=== PATIENT | female | born 1955 | race American Indian/Alaskan Native ===

== ENCOUNTER 2017-05-13 07:48 | Emergency (ER) | payer OTHER ==
[2017-05-13] MEDS ORDERED: BOOSTRIX IM ONE (11:15)
[2017-05-13] MEDS ORDERED: BACTRIM DS PO ONE (11:15)
[2017-05-13] MEDS ORDERED: ZOFRAN ODT PO ONE (11:15)
[2017-05-13] MEDS ORDERED: PERCOCET 5/325 PO ONE (11:15)
[2017-05-13] MEDS ORDERED: DILAUDID IV ONE ×2 (11:20→17:26)
[2017-05-13] MEDS ORDERED: ZOFRAN IV ONE ×2 (11:20→17:28)
[2017-05-13] MEDS ORDERED: CLEOCIN 600 MG/50 mL 600 MG/50 ML BAG IV ONE (11:20)
[2017-05-13] MEDS ORDERED: TORADOL IV ONE (11:20)
[2017-05-13 11:49] LABS: Basophils % (Auto) 0.6 % (0.0-1.8); Eosinophils % (Auto) 0.5 % (0.0-4.3); Hematocrit 38.3 % (30.3-42.9); Hemoglobin 13.4 gm/dl (10.1-14.3); Mean Corpuscular HGB Conc 35 % (30-34); Mean Corpuscular Hemoglobin 31 pg (28-32); Mean Corpuscular Volume 89 fl (79-97); Platelet Count 230 K/mm3 (140-440); White Blood Count 6.2 K/mm3 (4.5-11.0)
--- NOTE | 2017-05-13 11:58 | Emergency Department Report ---
ED ENT HPI - General Chief complaint: Earache Stated complaint: RIGHT EAR PAIN Time Seen by Provider: 05/13/17 11:09 Source: patient Mode of arrival: Ambulatory Limitations: No Limitations - History of Present Illness Initial comments: 61 year old female the past medical history diabetes and hypertension presents to the hospital complaints of pain and swelling to right ear 3 days. Patient had a previous pit to this area since and has noticed pain and swelling 3 days. No reports of fever. Glucose is controlled with current medication. Patient had excellent lightheadedness earlier that has since resolved. Pain is constant, rated 5/10 intensity, worse with palpation. No drainage reported. - Related Data Previous Rx's Medication Instructions Recorded Last Taken Type HYDROcodone/APAP 5-325 [[place] 1 each PO Q6HR PRN #20 tablet 05/13/17 Unknown Rx 5/325] Sulfamethoxazole/Trimethoprim 1 each PO BID #20 tablet 05/13/17 Unknown Rx [Bactrim DS TAB] Allergies Allergy/AdvReac Type Severity Reaction Status Date / Time No Known Allergies Allergy Unverified 05/13/17 08:21 ED Dental HPI - General Chief complaint: Earache Stated complaint: RIGHT EAR PAIN Time Seen by Provider: 05/13/17 11:09 Source: patient Mode of arrival: Ambulatory Limitations: No Limitations - Related Data Previous Rx's Medication Instructions Recorded Last Taken Type HYDROcodone/APAP 5-325 [[place] 1 each PO Q6HR PRN #20 tablet 05/13/17 Unknown Rx 5/325] Sulfamethoxazole/Trimethoprim 1 each PO BID #20 tablet 05/13/17 Unknown Rx [Bactrim DS TAB] Allergies Allergy/AdvReac Type Severity Reaction Status Date / Time No Known Allergies Allergy Unverified 05/13/17 08:21 ED Review of Systems ROS: Stated complaint: RIGHT EAR PAIN Other details as noted in HPI Comment: All other systems reviewed and negative Other: Constitutional: No fevers chills Eyes: No eye pain visual changes ENT: as per hpi Neck: Denies pain Respiratory: Denies cough wheezing shortness of breath Cardiovascular: Denies chest pain, palpitations, syncope GI: Denies abdominal pain, nausea, vomiting, diarrhea : Denies dysuria Musculoskeletal: Denies back pain, joint swelling Skin: Denies rash, lesions, erythema Neurologic: Denies headache, numbness, weakness Psychiatric: Denies suicidal ideation, hallucinations ED Past Medical Hx - Past Medical History Previous Medical History?: Yes Hx Hypertension: Yes Hx Diabetes: Yes - Surgical History Past Surgical History?: Yes Additional Surgical History: Hysterectomy - Social History Smoking Status: Former Smoker Substance Use Type: None - Medications Home Medications: Home Medications Medication Instructions Recorded Confirmed Last Taken Type HYDROcodone/APAP 5-325 [[place] 1 each PO Q6HR PRN #20 tablet 05/13/17 Unknown Rx 5/325] Sulfamethoxazole/Trimethoprim 1 each PO BID #20 tablet 05/13/17 Unknown Rx [Bactrim DS TAB] ED Physical Exam - General Limitations: No Limitations - Other Other exam information: General: No limitations, patient is alert in no acute distress Head exam: Atraumatic, normocephalic Eyes exam: Normal appearance, pupils equal reactive to light, extraocular movements intact ENT: Moist mucous membrane, normal oropharynx. Patient has a preauricular pit that has been present since . Patient has swelling, redness, and tenderness along the cymba and farhana helix of the right ear. Tenderness along temporal bone. Ear canal unremarkable Neck exam: Normal inspection, full range of motion, no meningismus nontender Respiratory exam: Clear to auscultation bilateral, no wheezes, rales, crackles Cardiovascular: Normal rate and rhythm, normal heart sounds Abdomen: Soft, nondistended, and nontender, with normal bowel sounds, no rebound, or guarding Extremity: Full range of motion normal inspection no deformity Back: Normal Inspection, full range of motion, no tenderness Neurologic: Alert, oriented x3, cranial nerves intact, no motor or sensory deficit Psychiatric: normal affect, normal mood Skin: Warm, dry, intact ED Course Vital Signs 05/13/17 05/13/17 05/13/17 08:24 10:30 12:48 Temperature 98.3 F 98.5 F 98.1 F Pulse Rate 64 72 68 Respiratory 16 16 Rate Blood Pressure 145/81 Blood Pressure 133/75 123/77 [Right] O2 Sat by Pulse 100 100 100 Oximetry 05/13/17 15:55 Temperature 98.3 F Pulse Rate 67 Respiratory 16 Rate Blood Pressure Blood Pressure 126/73 [Right] O2 Sat by Pulse 100 Oximetry - Reevaluation(s) Reevaluation #1: 05/13/17 17:28 Pain improved after Toradol. Patient refused IV Dilaudid. Patient received clindamycin IV for infection. - Consultations Consultation #1: 05/13/[address] Shetty consulted, discussed presentation and CT findings. Recommends 18- gauge needle aspiration. I and D if absolutely necessary. Patient will need surgical removal of the sinus tract/cysts in the future. - I & D Right Ear Type of Procedure: Simple Blade Size: 11 I & D Procedure: betadine prep, sterile drapes applied, sterile dressing applied , gauze wick placed Progress: culture sent ED Medical Decision Making - Lab Data Result diagrams: 05/13/17 11:41 05/13/17 11:41 Lab Results 05/13/17 05/13/17 05/13/17 Range/Units 11:41 11:41 12:21 WBC 6.2 (4.5-11.0) K/mm3 RBC 4.30 (3.65-5.03) M/mm3 Hgb 13.4 (10.1-14.3) gm/dl Hct 38.3 (30.3-42.9) % MCV 89 (79-97) fl MCH 31 (28-32) pg MCHC 35 H (30-34) % RDW 13.0 L (13.2-15.2) % Plt Count 230 (140-440) K/mm3 Lymph % (Auto) 35.8 H (13.4-35.0) % [place] % (Auto) 7.3 (0.0-7.3) % Eos % (Auto) 0.5 (0.0-4.3) % Baso % (Auto) 0.6 (0.0-1.8) % Lymph # 2.2 (1.2-5.4) K/mm3 [place] # 0.5 (0.0-0.8) K/mm3 Eos # 0.0 (0.0-0.4) K/mm3 Baso # 0.0 (0.0-0.1) K/mm3 Seg Neutrophils % 55.8 (40.0-70.0) % Seg Neutrophils # 3.5 (1.8-7.7) K/mm3 Sodium 138 (137-145) mmol/L Potassium 4.1 (3.6-5.0) mmol/L Chloride 98.6 (98-107) mmol/L Carbon Dioxide 27 (22-30) mmol/L Anion Gap 17 mmol/L BUN 11 (7-17) mg/dL Creatinine 0.6 L (0.7-1.2) mg/dL Estimated GFR > 60 ml/min BUN/Creatinine Ratio 18 % Glucose 230 H (65-100) mg/dL POC Glucose 232 H (70-105) Calcium 9.2 (8.4-10.2) mg/dL 05/13/ Range/Units 16:04 WBC (4.5-11.0) K/mm3 RBC (3.65-5.03) M/mm3 Hgb (10.1-14.3) gm/dl Hct (30.3-42.9) % MCV (79-97) fl MCH (28-32) pg MCHC (30-34) % RDW (13.2-15.2) % Plt Count (140-440) K/mm3 Lymph % (Auto) (13.4-35.0) % [place] % (Auto) (0.0-7.3) % Eos % (Auto) (0.0-4.3) % Baso % (Auto) (0.0-1.8) % Lymph # (1.2-5.4) K/mm3 [place] # (0.0-0.8) K/mm3 Eos # (0.0-0.4) K/mm3 Baso # (0.0-0.1) K/mm3 Seg Neutrophils % (40.0-70.0) % Seg Neutrophils # (1.8-7.7) K/mm3 Sodium (137-145) mmol/L Potassium (3.6-5.0) mmol/L Chloride (98-107) mmol/L Carbon Dioxide (22-30) mmol/L Anion Gap mmol/L BUN (7-17) mg/dL Creatinine (0.7-1.2) mg/dL Estimated GFR ml/min BUN/Creatinine Ratio % Glucose (65-100) mg/dL POC Glucose 170 H (70-105) Calcium (8.4-10.2) mg/dL - Radiology Data Radiology results: report reviewed CT orbits/ears/fossa with IV contrast: Inflammation and small abscess are confined to the right ear. See report - Medical Decision Making Patient has just a little bit of purulent drainage from right ear incision over the abscess - Differential Diagnosis abscess, cellulitis, osteomyelitis Critical Care Time: No Critical care attestation.: If time is entered above; I have spent that time in minutes in the direct care of this critically ill patient, excluding procedure time. ED Disposition Clinical Impression: Abscess of preauricular sinus Disposition: TO HOME OR SELFCARE Is pt being admited?: No Does the pt Need Aspirin: No Condition: Stable Instructions: Abscess (ED) Additional Instructions: Take the medication as prescribed. Follow up with the ENT doctor provided within 2 days or the ENT doctor of your choice. If you're unable to see an ENT doctor secondary to the holiday I recommended going to [facility] because they do have ENT coverage. Prescriptions: HYDROcodone/APAP 5-325 [[place] 5/325] 1 each PO Q6HR PRN #20 tablet PRN Reason: Pain Sulfamethoxazole/Trimethoprim [Bactrim DS TAB] 1 each PO BID #20 tablet Referrals: [facility] [Other] - 2-3 Days (ER for ENT doctor) MERNA WIGGINS MD [Staff Physician] - 2-3 Days TAYLER RICO MD [Staff Physician] - 2-3 Days Time of Disposition: 17:48
[2017-05-13 12:09] LABS: Anion Gap 17 mmol/L; BUN/Creatinine Ratio 18; Blood Urea Nitrogen 11 mg/dL (7-17); Calcium 9.2 mg/dL (8.4-10.2); Carbon Dioxide 27 mmol/L (22-30); Chloride 98.6 mmol/L (98-107); Glucose 230 mg/dL (65-100); Potassium 4.1 mmol/L (3.6-5.0); Sodium 138 mmol/L (137-145)
[2017-05-13] MEDS ORDERED: NACL ONE (12:40)
--- NOTE | 2017-05-13 13:10 | Cat Scan Report ---
CT ORBIT/EAR/FOSSA WITH CONTRAST Technique: Helical CT following IV contrast. Coronal reformatted images. History: Right ear swelling, evaluate for abscess. Findings: There is nonspecific soft tissue swelling and edema in the right ear region. There appears to be a small abscess with trace gas measuring 7 x 15 mm in axial plane within the pinna of the right ear. No additional abscess is identified. The temporal bones are well-aerated. Middle ear contents are normal. No fracture or bony destruction. Impression: Inflammation and small abscess are confined to the right ear as described above.
[2017-05-13] MEDS ORDERED: XYLOCAINE 1% 20 mL INFILTRATI ONE (14:49)
[2017-05-13] MEDS ORDERED: DILAUDID ONE (17:35)
[2017-05-13 19:00] VITALS: BP 135/84
== END 2017-05-13 18:10 | disposition home or self-care (01) ==
LOC: ED 07:48
DX: H60.01 Abscess of right external ear (principal); I10 Essential (primary) hypertension; E11.9 Type 2 diabetes mellitus without complications
CPT/HCPCS: 10060; 36415; 70481; 80048; 82962; 85025; 87076; 87116; 87186; 90471; 90715; 96365; 96375; 96376; 99284; J1170; J1885; J2405; Q9967; J1815

== ENCOUNTER 2017-05-15 10:55 | Emergency (ER) | payer SELFPAY ==
[2017-05-15 11:03] VITALS: BP 143/68
[2017-05-15] MEDS ORDERED: XYLOCAINE 1% MPF 5 mL INFILTRATI ONE (12:29)
[2017-05-15] MEDS ORDERED: ROCEPHIN IM ONE (12:29)
[2017-05-15] MEDS ORDERED: PERCOCET 5/325 PO ONE (12:29)
--- NOTE | 2017-05-15 12:30 | Emergency Department Report ---
Abscess Boil HPI - HPI Chief Complaint: Earache Stated Complaint: RIGHT EAR PAIN Time Seen by Provider: 05/15/17 11:26 Duration: 3 Days Location: Other (EAR) Severity: Moderate History: Yes Pain, Yes Purulent Drainage, No Fever, No Numbness, No Foreign Body , No Previous History, No Insect Bite Home Medications: Previous Rx's Medication Instructions Recorded Last Taken Type HYDROcodone/APAP 5-325 [[place] 1 each PO Q6HR PRN #20 tablet 05/13/17 Unknown Rx 5/325] Sulfamethoxazole/Trimethoprim 1 each PO BID #20 tablet 05/13/17 Unknown Rx [Bactrim DS TAB] Allergies/Adverse Reactions: Allergies Allergy/AdvReac Type Severity Reaction Status Date / Time No Known Allergies Allergy Unverified 05/13/17 08:21 ED Review of Systems ROS: Stated complaint: RIGHT EAR PAIN Other details as noted in HPI Comment: All other systems reviewed and negative Skin: other (FOLLOW UP EAR ABSCESS) ED Past Medical Hx - Past Medical History Hx Hypertension: Yes Hx Diabetes: Yes - Surgical History Additional Surgical History: Hysterectomy - Social History Smoking Status: Never Smoker Substance Use Type: None - Medications Home Medications: Home Medications Medication Instructions Recorded Confirmed Last Taken Type HYDROcodone/APAP 5-325 [[place] 1 each PO Q6HR PRN #20 tablet 05/13/17 Unknown Rx 5/325] Sulfamethoxazole/Trimethoprim 1 each PO BID #20 tablet 05/13/17 Unknown Rx [Bactrim DS TAB] ED Abscess Boil Physical Exam - Exam General: Vital signs noted. No distress. Alert and acting appropriately. Size: 2 cm Exam: Yes Tenderness, Yes Normal Neurologic Exam, Yes Normal Circulation, No Fluctuance, No Surrounding Cellulites/Erythema, No Lymphangitis, No Crepitation , No Heart Murmur Exam: NO MASTOID TENDERNESS. NO DENTAL ABSCESS. 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 ED Medical Decision Making - Medical Decision Making SEE NOTE - Differential Diagnosis FOLLOW UP CHECK ED Disposition Clinical Impression: Abscess of preauricular sinus Disposition: TO HOME OR SELFCARE Is pt being admited?: No Does the pt Need Aspirin: No Condition: Stable Additional Instructions: FOLLOW UP ENT THURSDAY PLANNED MEDS ORDERED EPSOM SALT SOAKS DISCUSSED Referrals: PRIMARY CARE, [Primary Care Provider] - 3-5 Days Time of Disposition: 12:30
== END 2017-05-15 13:05 | disposition home or self-care (01) ==
LOC: ED 10:55
DX: H60.01 Abscess of right external ear (principal); I10 Essential (primary) hypertension; E11.9 Type 2 diabetes mellitus without complications; Z90.710 Acquired absence of both cervix and uterus
CPT/HCPCS: 96372; 99282; J0696